=== PATIENT | male | born 1985 | race Caucasian/White ===

== ENCOUNTER 2018-07-25 20:23 | Emergency (ER) | payer SELFPAY ==
[~2018-07-25] VITALS: Ht 175.3 cm; Wt 61.2 kg
[2018-07-25 20:30] VITALS: BP 128/85
--- NOTE | 2018-07-25 22:02 | NUR ---
CALLED PT TO BRING INTO ROOM, NO ANSWER.
--- NOTE | 2018-07-25 22:08 | NUR ---
CALLED PT TO BE BROUGHT TO A ROOM, NO ANSWER
== END 2018-07-25 22:12 | disposition left against medical advice (07) ==
LOC: ER 20:28
DX: Z53.21 Procedure and treatment not carried out due to patient leaving prior to being seen by health care provider (principal); M54.2 Cervicalgia; F32.9 Major depressive disorder, single episode, unspecified